=== PATIENT | female | born 1965 ===

== ENCOUNTER 2020-07-12 13:56 | Outpatient (CLI) | payer MEDICAID ==
[~2020-07-12] VITALS: Ht 160 cm; Wt 52.6 kg
[2020-07-12 14:28] VITALS: BP 113/65
--- NOTE | 2020-07-12 20:29 | Consultation ---
DATE OF CONSULTATION: 07/12/2020 GASTROENTEROLOGY CONSULTATION CONSULTING PHYSICIAN: Corby Milner MD. CHIEF COMPLAINT: Referral for screening colonoscopy. PAST MEDICAL HISTORY: Colonic polyps. Last colonoscopy over six years ago. PAST SURGICAL HISTORY: . MEDICATIONS: None. FAMILY HISTORY: Noncontributory. SOCIAL HISTORY: The patient denies any tobacco, alcohol, or drug use. ALLERGIES: Allergic to sulfa. REVIEW OF SYSTEMS: Negative. PHYSICAL EXAMINATION: VITAL SIGNS: Temperature 97.5, blood pressure 113/85, pulse 64, respirations 20. HEENT: Normocephalic and atraumatic. Sclerae are anicteric. NECK: Supple. No evidence of obvious lymphadenopathy. CARDIOVASCULAR: Regular rate and rhythm. Plus S1-S2. LUNGS: Clear to auscultation bilaterally. ABDOMEN: Positive bowel sounds. Soft and nontender. No rebound. No guarding. No peritoneal sign. EXTREMITIES: No cyanosis, no clubbing, no edema. ASSESSMENT AND PLAN: This is a 55-year-old female with past medical history of colonic polyps, needs followup colonoscopy. Plan to schedule when authorization is obtained. Corby Milner M.D. DR: PANCHO JOB#: [id number] CC:
== END 2020-07-12 15:56 | disposition home or self-care (01) ==
LOC: PAN 13:56
DX: K63.5 Polyp of colon (principal); Z86.010 Personal history of colon polyps; Z88.2 Allergy status to sulfonamides
CPT/HCPCS: 99203